=== PATIENT | female | born 1965 | race Caucasian/White ===

== ENCOUNTER → 2017-02-04 | Outpatient (CLI) | payer BC ==
[~2017-02-04] MED LIST: AMOX500C2 PO; BPR75T PO; CHOL500026 PO; CITA20TA4 PO; CYCL10TA9 PO; DCS100C PO; DULO60CA6 PO; EST.1TD TD; ESTR1TAB24 PO; FURO40TA4 PO; GABA600T PO; GBPN600T PO; HYDR-3583 PO; HYDR-3720 PO; IBP800T PO; MGX400T PO; NAPR-243 PO; OMEG-90 PO; ONDAN4ODT PO; OXYC15TA74 PO; POTA10TA6 PO; PRX20T PO; SIMV20TA3 PO
--- NOTE | 2017-02-05 08:31 | Diagnostic Imaging Report ---
Bilateral screening mammogram 2D views with tomosynthesis The current study was also evaluated with a Computer Aided Detection (CAD) system. Indication: Screening. No current complaints stated on the questionnaire. COMPARISON: 01/14/17. FINDINGS: The breasts are composed of scattered fibroglandular densities. There are occasional benign-appearing calcifications. Allowing for technique and positional differences, no suspicious change is seen. IMPRESSION: No significant change. ACR BI-RADS Category 2: Benign findings. Result letter will be mailed to the patient. Note: At least 10% of breast cancer is not imaged by mammography. Dictated by: Dictated on workstation # [id number]
== END ==
LOC: RAD 13:33
PROVIDERS: ATTEND Nurse Practitioner
DX: Z12.31 Encounter for screening mammogram for malignant neoplasm of breast (principal)
CPT/HCPCS: 77067

== ENCOUNTER 2017-02-11 14:00 | Outpatient (CLI) | payer BC ==
[~2017-02-11] VITALS: Ht 160 cm; Wt 83.9 kg
[2017-02-11] MEDS ORDERED: FENO134C PO (14:02)
[2017-02-11] MEDS ORDERED: SIMV40TA4 PO (14:02)
== END 2017-02-11 14:08 ==
LOC: PREOP 14:00
PROVIDERS: ATTEND Surgery
DX: Z01.818 Encounter for other preprocedural examination (principal); R19.7 Diarrhea, unspecified; Z87.19 Personal history of other diseases of the digestive system

== ENCOUNTER 2017-02-15 08:27 | Day surgery (SDC) | payer BC ==
[~2017-02-15 08:27] MED LIST changes: +FENO134C PO; +SIMV40TA4 PO
[2017-02-15 08:35] VITALS: BP 128/81
[2017-02-15] MEDS ORDERED: fentaNYL INJECTION 100 MCG/2 ML AMP IVP PRN (08:45)
[2017-02-15] MEDS: NS IV 500 ML 500 ML IV PRN ×3 (08:50→10:41)
[2017-02-15] MEDS ORDERED: MIDAZOLAM 2 MG/2 ML (VERSED) VIAL ONE ×3 (09:23)
[2017-02-15] MEDS ORDERED: fentaNYL INJECTION 100 MCG/2 ML AMP ONE (09:24)
[2017-02-15] MEDS ORDERED: NS IV 500 ML 500 ML ONE (09:57)
--- NOTE | 2017-02-15 10:24 | Conscious Sedation/ASA ---
Conscious Sedation Pre-Proced Time Reviewed: 10:24 ASA Class: 2 Airway Mallampati Classification: (modoc appropriate class) I. II. III, IV Lungs Heart ASA score ASA 1: a normal healthy patient ASA 2: a patient with a mild systemic disease (mid diabetes, controlled hypertension, obesity ASA 3: a patient with a severe systemic disease that limits activity (angina , COPD, prior Myocardial infarction) ASA 4: a patient with an incapacitating disease that is a constant threat to life (CHF, renal failure) ASA 5: a moribund patient not expected to survive 24 hrs. (ruptured aneurysm) ASA 6: a declared brain patient whose organs are being harvested. For emergent operations, add the letter E after the classification Grade 1 Sedation Plan: Discussed options with patient/fam Note The patient is an appropriate candidate to undergo the planned procedure, sedation, and anesthesia. The patient immediately re-assessed prior to indication. ALESIA BAUER MD Feb 15, 2017 10:24 am
--- NOTE | 2017-02-15 10:24 | History & Physicial ---
History of Present Illness History of Present Illness Reason for visit/HPI To undergo colonoscopy regarding diverticulitis and for screening purposes Date of Admission Date Seen by Provider: Feb 15, 2017 Time Seen by Provider: 10:23 I consulted on this patient on 02/15/17 10:22 Attending Physician Alesia Hayes MD Admitting Physician Ilia Cortez MD Consult Allergies and Home Medications Allergies Coded Allergies: No Known Drug Allergies (Unverified , 02/11/17) Home Medications Estradiol 1 Mg Tablet, 1 MG PO DAILY, (Reported) Fenofibrate,Micronized 134 Mg Capsule, 134 MG PO DAILY, (Reported) Simvastatin 40 Mg Tablet, 40 MG PO DAILY, (Reported) Past Whhyuiq-Mztqfa-Aamiat Hx Patient Social History Alcohol Use: Occasionally Uses Recreational Drug Use: No Smoking Status: Never a Smoker Recent Foreign Travel: No Contact w/other who traveled: No Recent Hopitalizations: No Recent Infectious Disease Expo: No Immunizations Up To Date Date of Influenza Vaccine: Apr 20, 2016 Seasonal Allergies Seasonal Allergies: No Surgeries HX Surgeries: Yes (LEFT ARM SURGERY, D&C, RIGHT HIP BURSA REMOVED,) Surgeries: Gallbladder, Hysterectomy Respiratory Hx Respiratory Disorders: No Cardiovascular Hx Cardiovascular Disorders: No Cardiac Disorders: Irregular Heartbeat Neurological Hx Neurological Disorders: Yes Neurological Disorders: Headaches /Migraines Reproductive System Hx Reproductive Disorders: No Sexually Transmitted Disease: No HIV/AIDS: No Genitourinary Hx Genitourinary Disorders: No Gastrointestinal Hx Gastrointestinal Disorders: Yes Gastrointestinal Disorders: Diverticulosis, Chronic Diarrhea Musculoskeletal Hx Musculoskeletal Disorders: Yes (HX COMPOUND FRACTURE LEFT ARM) Musculoskeletal Disorders: Arthritis, Fibromyalgia, Chronic Back Pain, Fractures Endocrine Hx Endocrine Disorders: No HEENT HX ENT Disorders: Yes (GLASSES) Loss of Vision: Bilateral Hearing Impairment: Denies Cancer Hx Cancer: Yes (BASAL CELL) Cancer: Skin Psychosocial Hx Psychiatric Problems: Yes (HX ) Behavioral Health Disorders: Depression Integumentary HX Skin/Integumentary Disorder: No Blood Transfusions Hx Blood Disorders: No Adverse Reaction to a Blood Tr: No (N/A) Family Medical History Family Hx: FAM HX-BLOOD DISORD NEC G8 BROTHER FAM HX-NEUROLOG DIS NEC G8 SISTER Family history: Arthritis 19 MOTHER Family history: Cardiovascular disease 19 FATHER 19 MOTHER Family history: Hypertension 19 MOTHER Stroke 19 MOTHER Constitutional: no symptoms reported EENTM: no symptoms reported Cardiovascular: no symptoms reported Gastrointestinal: no symptoms reported Genitourinary: no symptoms reported Musculoskeletal: no symptoms reported Skin: no symptoms reported Psychiatric/Neurological: No Symptoms Reported Physical Exam Vital Signs Vital Sign - Last 12Hours 02/15/17 08:35 Temp 98.7 Pulse 89 Resp 18 B/P (MAP) 128/81 Pulse Ox 92 Capillary Refill : General Appearance: No Apparent Distress HEENT: Normal ENT Inspection Neck: Normal Inspection Respiratory: Lungs Clear Cardiovascular: Regular Rate, Rhythm Gastrointestinal: Non Tender, Soft Rectal: Deferred Neurologic/Psychiatric: Alert Skin: Warm/Dry Assessment/Plan Assessment and Plan resolved sigmoid diverticulitis. For screening and colonoscopy to gauge the extent of diverticulosis Problems: ALESIA HAYES MD Feb 15, 2017 10:24 am
[2017-02-15] MEDS: MIDAZOLAM 2 MG/2 ML (VERSED) VIAL IVP PRN ×3 (10:40→10:53)
--- NOTE | 2017-02-15 11:02 | Endo Procedure Record ---
Endo Procedure Report Date of Procedure Feb 15, 2017 Surgeon (s) ALESIA BAUER MD Post Procedure/Op Diagnosis sigmoid diverticulosis Procedure Performed colonoscopy to cecum Description of Procedure Anesthesia Type: Conscious Sedation Specimen(s) collected/removed none Description of the Procedure Indication for the procedure: This lady has been treated for sigmoid diverticulitis at least on 2 occasions, 5 years apart. She came in for colonoscopy to evaluate the extend of diverticulosis and for screening purposes. Informed consent was obtained after reviewing the procedure and complications of iatrogenic perforation, post polypectomy bleeding etc. Description of procedure: she was placed in left lateral decubitus position and her vital signs were monitored. Conscious sedation was achieved using Versed and fentanyl. Digital rectal examination was unremarkable. The colonoscope was then introduced in the rectum and advanced all the way up to the cecum. The quality of bowel preparation was rather suboptimal mL with liquid stools found along the sigmoid colon. The scope was then withdrawn slowly and the mucosa examined in a systematic fashion after suctioning the liquid fecal material. Finding: Narrow mouthed sigmoid diverticulitis without any active inflammation. No polyps were found. She tolerated the procedure well and was taken back to the nursing area in a stable condition. Impression: Resolved sigmoid diverticulosis. Will treat conservatively. No family history of colon cancer and therefore screening examination recommended in 10 years. Copies To: DUTCH DURON MD, XAVIER M MD Feb 15, 2017 11:02 am
--- NOTE | 2017-02-15 11:03 | Discharge Inst-Simple/Standard ---
Discharge Inst-Standard Discharge Medications New, Converted or Re-Newed RX: Other Patient Instructions/Follow Up Plan of Care/Instructions/FU: screening colonoscopy in 10 years Activity as Tolerated: Yes Discharge Diet: No Restrictions ALESIA BAUER MD Feb 15, 2017 11:03 am
[2017-02-15 11:10] VITALS: BP 119/76
[2017-02-15 11:40] VITALS: BP 116/72
[2017-02-15 11:50] VITALS: BP 116/72
== END 2017-02-15 11:50 | disposition home or self-care (01) ==
LOC: ENDO 08:27
PROVIDERS: ATTEND Surgery
DX: K57.30 Diverticulosis of large intestine without perforation or abscess without bleeding (principal)

== ENCOUNTER 2017-12-07 06:12 | Outpatient (CLI) | payer BC ==
[~2017-12-07] VITALS: Ht 160 cm; Wt 83.9 kg
[2017-12-07] MEDS ORDERED: ESTR1TAB24 PO (14:52)
[2017-12-07] MEDS ORDERED: POTA10TA10 PO (14:52)
[2017-12-07] MEDS ORDERED: FURO40TA4 PO (14:52)
[2017-12-13] MEDS ORDERED: PANT40TA2 PO (11:02)
== END 2017-12-07 14:54 ==
LOC: PREOP 06:12
PROVIDERS: ATTEND Surgery
DX: Z01.818 Encounter for other preprocedural examination (principal); K21.9 Gastro-esophageal reflux disease without esophagitis; R19.5 Other fecal abnormalities

== ENCOUNTER 2017-12-13 09:36 | Day surgery (SDC) | payer BC ==
[~2017-12-13] VITALS: Ht 160 cm; Wt 83.9 kg
[~2017-12-13 09:36] MED LIST changes: +POTA10TA10 PO
[2017-12-13] MEDS ORDERED: NS IV 500 ML 500 ML IV PRN (09:41)
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
[2017-12-13] MEDS ORDERED: HURRICAINE EXT TUBE (BENZOCAINE) XX PRN (09:45)
[2017-12-13 09:50] VITALS: BP 119/74
[2017-12-13] MEDS ORDERED: NS IV 500 ML 500 ML ONE (10:03)
--- NOTE | 2017-12-13 10:04 | Conscious Sedation/ASA ---
Conscious Sedation Pre-Proced Time Reviewed: 10:04 ASA Class: 2 Airway Mallampati Classification: (tuscarora appropriate class) I. II. III, IV Lungs Heart ASA score ASA 1: a normal healthy patient ASA 2: a patient with a mild systemic disease (mid diabetes, controlled hypertension, obesity ASA 3: a patient with a severe systemic disease that limits activity (angina , COPD, prior Myocardial infarction) ASA 4: a patient with an incapacitating disease that is a constant threat to life (CHF, renal failure) ASA 5: a moribund patient not expected to survive 24 hrs. (ruptured aneurysm) ASA 6: a declared brain patient whose organs are being harvested. For emergent operations, add the letter E after the classification Grade 1 Sedation Plan: Plan communicated to team members, Discussed options with patient/fam Note The patient is an appropriate candidate to undergo the planned procedure, sedation, and anesthesia. The patient immediately re-assessed prior to indication. ALESIA BAUER MD Dec 13, 2017 10:04
--- NOTE | 2017-12-13 10:04 | History & Physicial ---
History of Present Illness History of Present Illness Reason for visit/HPI for EGD to investigate symptoms of reflux disease and heme-positive stools Date of Admission 12/13/17 Date Seen by Provider: Dec 13, 2017 Time Seen by Provider: 10:03 I consulted on this patient on 12/13/17 10:02 Attending Physician Alesia Hayes MD Admitting Physician Ilia Cortez MD Consult Allergies and Home Medications Allergies Coded Allergies: No Known Drug Allergies (Unverified , 02/11/17) Home Medications Estradiol 1 Mg Tablet, 1 MG PO DAILY, (Reported) Fenofibrate,Micronized 134 Mg Capsule, 134 MG PO DAILY, (Reported) Furosemide 40 Mg Tablet, 40 MG PO DAILY, (Reported) Potassium Chloride 10 Meq Tablet.er, 10 MEQ PO DAILY, (Reported) Simvastatin 40 Mg Tablet, 40 MG PO DAILY, (Reported) Patient Home Medication List Home Medication List Reviewed: Yes Past Ybalggn-Gjcjpg-Bmxnnq Hx Patient Social History Marrital Status: Employed/Student: employed Alcohol Use: Occasionally Uses Alcohol Beverage of Choice: Beer Recreational Drug Use: No Smoking Status: Never a Smoker Recent Foreign Travel: No Contact w/other who traveled: No Recent Hopitalizations: No Recent Infectious Disease Expo: No Immunizations Up To Date Date of Influenza Vaccine: Apr 11, 2017 Seasonal Allergies Seasonal Allergies: No Surgeries Yes Gallbladder, Hysterectomy Respiratory No Cardiovascular No Irregular Heartbeat Neurological Yes Headaches /Migraines Reproductive System Hx Reproductive Disorders: No Sexually Transmitted Disease: No HIV/AIDS: No BINDING NICKER History: Hysterectomy Gastrointestinal Gastroesophageal Reflux, Diverticulosis Musculoskeletal Arthritis, Fibromyalgia, Chronic Back Pain, Fractures HEENT Loss of Vision: Bilateral Hearing Impairment: Denies Cancer Skin Psychosocial Behavioral Health Disorders: Depression Blood Transfusions Adverse Reaction to a Blood Tr: No (N/A) Family Medical History Family Hx: FAM HX-BLOOD DISORD NEC G8 BROTHER FAM HX-NEUROLOG DIS NEC G8 SISTER Family history: Arthritis 19 MOTHER Family history: Cardiovascular disease 19 FATHER 19 MOTHER Family history: Hypertension 19 MOTHER Stroke 19 MOTHER Constitutional: no symptoms reported EENTM: no symptoms reported Respiratory: no symptoms reported Cardiovascular: no symptoms reported Gastrointestinal: see HPI Genitourinary: no symptoms reported Musculoskeletal: no symptoms reported Skin: no symptoms reported Psychiatric/Neurological: No Symptoms Reported Physical Exam Vital Signs Capillary Refill : General Appearance: No Apparent Distress Neck: Normal Inspection Respiratory: Lungs Clear Cardiovascular: Regular Rate, Rhythm Gastrointestinal: Non Tender, Soft Neurologic/Psychiatric: Alert, Oriented x3 Skin: Warm/Dry Assessment/Plan Assessment and Plan lady with symptoms of reflux and heme-positive stools. For upper endoscopy. Admission Diagnosis Admission Status: Other (Outpt Proc) ALESIA HAYES MD Dec 13, 2017 10:04
[2017-12-13] MEDS ORDERED: fentaNYL INJECTION 100 MCG/2 ML AMP ONE (10:26)
[2017-12-13] MEDS ORDERED: HURRICAINE EXT TUBE (BENZOCAINE) ONE (10:27)
[2017-12-13] MEDS ORDERED: MIDAZOLAM 2 MG/2 ML (VERSED) VIAL ONE ×4 (10:27→10:44)
[2017-12-13] MEDS: MIDAZOLAM 2 MG/2 ML (VERSED) VIAL IVP PRN ×4 (10:40→10:49)
[2017-12-13] MEDS: fentaNYL INJECTION 100 MCG/2 ML AMP IVP PRN ×2 (10:41→10:44)
--- NOTE | 2017-12-13 11:01 | Endo Procedure Record ---
Endo Procedure Report Date of Procedure Last Colonoscopy: Yes (2016) Dec 13, 2017 Surgeon (s) ALESIA BAUER MD Post Procedure/Op Diagnosis hiatal hernia with grade 2 esophagitis 2 mm distal gastric ulcer and multiple antral erosions Duodenitis Procedure Performed EGD with antral biopsy for H. pylori Description of Procedure Anesthesia Type: Conscious Sedation Specimen(s) collected/removed antral mucosa for H. pylori Description of the Procedure Indication for the procedure: This lady came in for an endoscopic assessment of symptoms of reflux disease. Informed consent was obtained after reviewing the procedure in detail. Description of the procedure: She was placed in left lateral decubitus position and her vital signs were monitored. Conscious sedation was achieved using Versed and fentanyl. The flexible gastroscope was introduced down the esophagus , past the stomach, into the proximal duodenum. Findings: Esophagus: Hiatal hernia with grade 2 esophagitis Stomach: 2 mm distal gastric ulcer and multiple antral erosions. Biopsy for H. pylori was obtained. Duodenum: Changes of mild duodenitis were found. There was no ofelia ulceration. She tolerated the procedure well and was taken in the nursing area in a stable condition. Impression: Symptoms of reflux disease. Gastric ulcers and erosions. H. pylori status pending Copy Copies To 1: JEROME MCLAIN XAVIER M MD Dec 13, 2017 11:01
[2017-12-13] MEDS ORDERED: PANT40TA2 PO (11:02)
--- NOTE | 2017-12-13 11:04 | Discharge Inst-Simple/Standard ---
Discharge Inst-Standard Discharge Medications New, Converted or Re-Newed RX: RX on Chart Patient Instructions/Follow Up Plan of Care/Instructions/FU: follow-up with her primary Activity as Tolerated: Yes Discharge Diet: No Restrictions ALESIA BAUER MD Dec 13, 2017 11:04
[2017-12-13 11:20] VITALS: BP 113/67
[2017-12-13 11:45] VITALS: BP 120/67
[2017-12-13 11:55] VITALS: BP 120/67
== END 2017-12-13 11:55 | disposition home or self-care (01) ==
LOC: ENDO 09:36
PROVIDERS: ATTEND Surgery
DX: K21.0 Gastro-esophageal reflux disease with esophagitis (principal); K25.7 Chronic gastric ulcer without hemorrhage or perforation; K29.80 Duodenitis without bleeding; I49.9 Cardiac arrhythmia, unspecified; G43.909 Migraine, unspecified, not intractable, without status migrainosus; M79.7 Fibromyalgia; K57.30 Diverticulosis of large intestine without perforation or abscess without bleeding; F32.9 Major depressive disorder, single episode, unspecified; Z79.899 Other long term (current) drug therapy
CPT/HCPCS: 88305

== ENCOUNTER → 2018-01-27 | Outpatient (CLI) | payer BC ==
[~2018-01-27] MED LIST changes: +PANT40TA2 PO
--- NOTE | 2018-01-27 17:28 | Diagnostic Imaging Report ---
INDICATION: Back pain. Three views were obtained. FINDINGS: There is slight anterolisthesis of L4 on L5. Alignment is otherwise normal. Vertebral body heights are well maintained. There is no fracture. IMPRESSION: Slight degenerative anterolisthesis of L4 on L5m, otherwise unremarkable. Dictated by: Dictated on workstation # [id number]
--- NOTE | 2018-01-27 17:32 | Diagnostic Imaging Report ---
CLINICAL INDICATION: Patient with midback pain. No known injury. EXAM: X-ray of the thoracic spine, three views. COMPARISON: X-ray of the thoracic spine dated 12/12/2012. FINDINGS: There is no acute thoracic spine fracture or dislocation. There is mild dextroscoliosis of the midthoracic spine region which is minimally progressed. There are mildly hypertrophic spurs involving the thoracic spine which have minimally progressed. Surgical clips are seen overlying the right upper quadrant which could be related to cholecystectomy changes. Again noted partially visualized lower cervical anterior disc fusion hardware. IMPRESSION: 1: There is no acute fracture or dislocation. 2: Mild degenerative disease of the thoracic spine which has minimally progressed. Dictated by: Dictated on workstation # [id number]
== END ==
LOC: RAD 16:53
DX: M47.814 Spondylosis without myelopathy or radiculopathy, thoracic region (principal)
CPT/HCPCS: 72070; 72100

== ENCOUNTER → 2018-01-29 | Outpatient (CLI) | payer BC ==
--- NOTE | 2018-01-29 11:23 | Diagnostic Imaging Report ---
PROCEDURE: MRI lumbar spine. TECHNIQUE: Multiplanar, multisequence MRI of the lumbar spine was performed without contrast. INDICATION: Back pain. Comparison made with prior examination from 10/30/2015. FINDINGS: The alignment of the lumbar spine is normal. Vertebral body heights are well maintained. There is no spondylolysis or spondylolisthesis. No fractures are identified. Conus medullaris is seen at L1 and is normal in appearance. The T12-L1 disc is unremarkable. L1-L2 disc is unremarkable. L2-L3 disc is unremarkable. L3-L4 disc is unremarkable. At L4-L5, there is slight loss of disc height and signal intensity. There is broad-based annular bulging, facet disease, and thickening of the ligamentum flavum. There is encroachment upon the left lateral recess. There is mild bilateral neuroforaminal encroachment. At L5-S1, there is mild broad-based annular bulging with slight effacement of the ventral thecal sac. There are postsurgical changes of a right hemilaminectomy. The previously seen extruded disc fragment is no longer appreciated. The abdominal aorta is nonaneurysmal. There is a cyst in the right kidney. IMPRESSION: Broad-based annular bulging at L4-L5 with mild central spinal stenosis and encroachment upon the left lateral recess. There is also mild bilateral neuroforaminal encroachment. Postsurgical changes of right hemilaminectomy at L5-S1 with removal of the previously seen herniated disc fragment. Otherwise some mild lower lumbar hypertrophic degenerative facet disease without other focal disc extrusion or high-grade spinal stenosis. Dictated by: Dictated on workstation # [id number]
== END ==
LOC: RAD 08:16
DX: M48.062 Spinal stenosis, lumbar region with neurogenic claudication (principal); M51.26 Other intervertebral disc displacement, lumbar region; Z98.890 Other specified postprocedural states
CPT/HCPCS: 72148

== ENCOUNTER 2018-10-24 05:41 | Outpatient (CLI) | payer BC ==
[~2018-10-24] VITALS: Ht 160 cm; Wt 74.8 kg
== END 2018-10-24 10:46 | disposition home or self-care (01) ==
LOC: PREOP 05:41
PROVIDERS: ATTEND Obstetrics & Gynecology
DX: Z01.818 Encounter for other preprocedural examination (principal)

== ENCOUNTER 2018-10-25 11:06 | Day surgery (SDC) | payer BC ==
[~2018-10-25] VITALS: Ht 160 cm; Wt 74.8 kg
[2018-10-25] MEDS ORDERED: ceFAZolin INJECTION 1,000 MG in WATER (STERILE) FOR INJECTION 10 ML IV ONE (11:15)
[2018-10-25] MEDS ORDERED: metroNIDAZOLE 500 MG/100 ML IVPB (PRE-MIX) IV ONE (11:30)
[2018-10-25 11:40] LABS: BILIRUBIN,URINE NEGATIVE (NEGATIVE); CLARITY,URINE SLIGHTLY CLOUDY; COLOR,URINE YELLOW; GLUCOSE, URINE (UA) NEGATIVE (NEGATIVE); KETONES,URINE NEGATIVE (NEGATIVE); LEUKOCYTE ESTERASE ,URINE NEGATIVE (NEGATIVE); NITRITE,URINE NEGATIVE (NEGATIVE); PH,URINE 5 (5-9); PROTEIN,URINE NEGATIVE (NEGATIVE); UROBILINOGEN,URINE NORMAL (NORMAL)
[2018-10-25] MEDS: LACTATED RINGERS 1,000 ML IV PRN ×2 (11:45→13:55)
[2018-10-25 12:00] LABS: BASOPHILS % (AUTO) 1 % (0-10); EOSINOPHILS # (AUTO) 0.1 10^3/uL (0.0-0.3); EOSINOPHILS % (AUTO) 2 % (0-10); HEMATOCRIT 41 % (35-52); HEMOGLOBIN 13.1 G/DL (11.5-16.0); LYMPHOCYTES # (AUTO) 1.8 X 10^3 (1.0-4.0); LYMPHOCYTES % (AUTO) 38 % (12-44); MEAN CORPUSCULAR HEMOGLOBIN 30 PG (25-34); MEAN CORPUSCULAR HGB CONC 32 G/DL (32-36); MEAN CORPUSCULAR VOLUME 93 FL (80-99); MEAN PLATELET VOLUME 10.2 FL (7.4-10.4); MONOCYTES # (AUTO) 0.3 X 10^3 (0.0-1.0); MONOCYTES % (AUTO) 7 % (0-12); NEUTROPHILS # (AUTO) 2.5 X 10^3 (1.8-7.8); NEUTROPHILS % (AUTO) 53 % (42-75); PLATELET COUNT 197 10^3/uL (130-400); RED CELL DISTRIBUTION WIDTH 13.7 % (10.0-14.5); WHITE BLOOD COUNT 4.7 10^3/uL (4.3-11.0)
[2018-10-25 12:16] LABS: BACTERIA,URINE MODERATE /HPF; RBC,URINE 0-2 /HPF
[2018-10-25] MEDS ORDERED: ONDANSETRON 4 MG/2 ML (SDV) Z0FRAN ONE (12:45)
[2018-10-25] MEDS ORDERED: MIDAZOLAM 2 MG/2 ML (VERSED) VIAL ONE (12:45)
[2018-10-25] MEDS ORDERED: proPOfol 200 MG/20 ML (DIPRIVAN) VIAL IV ONE ×4 (12:45→13:47)
[2018-10-25] MEDS ORDERED: LIDOCAINE PF 2% 5 ML (XYLOCAINE) VIAL ONE (12:45)
[2018-10-25] MEDS ORDERED: fentaNYL INJECTION 100 MCG/2 ML AMP ONE (12:45)
[2018-10-25] MEDS ORDERED: ROCURONIUM 10 MG/ML 5 ML SYRINGE IV ONE (12:46)
[2018-10-25] MEDS ORDERED: SEVOFLURANE (ULTANE) 15 ML INHAL SOLN ONE ×2 (12:46→14:13)
[2018-10-25] MEDS ORDERED: ESTRADIOL VAGINAL CREAM 42.5 GM (ESTRACE) VG ONE (12:48)
[2018-10-25] MEDS ORDERED: NS (IVPB) 100 ML ONE (12:48)
[2018-10-25] MEDS ORDERED: VASOPRESSIN INJECTION 20 UNIT/ML VIAL ONE (12:48)
[2018-10-25 13:00] VITALS: BP 121/72
[2018-10-25] MEDS ORDERED: SCOPOLAMINE 1.5 MG (TRANSDERM-SCOP) PATCH TOP ONE (13:00)
[2018-10-25] MEDS ORDERED: FAMOTIDINE 20MG/2ML IV (PEPCID) IV ONE (13:00)
[2018-10-25] MEDS ORDERED: ONDANSETRON 4 MG/2 ML (SDV) Z0FRAN IV ONE (13:00)
[2018-10-25] MEDS ORDERED: DEXAMETHASONE 10 MG/ML (DECADRON) 1 ML VIAL ONE (13:22)
[2018-10-25] MEDS ORDERED: ONDANSETRON 4 MG/2 ML (SDV) Z0FRAN IVP PRN (14:30)
[2018-10-25] MEDS ORDERED: PROMETHAZINE INJ 25 MG/ML (PHENERGAN) AMP IVP ONE (14:30)
[2018-10-25] MEDS ORDERED: morphine INJ 10 MG/ML 1ML (SYR OR VIAL) IVP ONE (14:30)
[2018-10-25] MEDS ORDERED: morphine INJ 10 MG/ML 1ML (SYR OR VIAL) ONE (14:33)
[2018-10-25] MEDS ORDERED: morphine INJ 5 MG/ML 1 ML VIAL IV PRN (14:45)
[2018-10-25] MEDS ORDERED: KETOROLAC 30 MG/ML VIAL IV SCH (14:45)
[2018-10-25] MEDS ORDERED: MILK OF MAGNESIA 400 MG/5 ML 30 ML UDC PO PRN (14:45)
--- NOTE | 2018-10-25 14:45 | Operative Report ---
Operative Report Date of Procedure/Surgery Oct 25, 2018 Surgeon (s) PENNIE FOSTER DO Automobile Damage Appraiser (s): Ignacia Nick, MS III Post-Operative Diagnosis Cystocele, rectocele, stress incontinence Procedure Performed A &P repair, Solyx sling Description of Procedure Anesthesia Type: General Estimated blood loss (mL): 100 ml Specimen(s) collected/removed none Description of the Procedure With informed consent the patient was taken to the operating room where general anesthesia was found to be adequate. She was prepped and draped in the usual sterile fashion in the dorsolithotomy position. A Greenfield catheter was placed in the bladder. A very large rectocele was seen. The Lone star retractor was placed and stitched into place. The perineum was grasped on either side of the perineum with José Miguel Clamps. The posterior vaginal mucosa was injected with dilute vasopressin and a midline incision was made in the posterior vaginal wall. I then undermined the posterior vaginal epithelium with Shaver scissors and cut in the vaginal epithelium in the midline. I then dissected the vaginal epithelium off of the posterior pubovaginal fascia. It was quite scarred at the peritoneum from previous lacerations or episiotomies. Once the epithelium was dissected off of the posterior pubovaginal fascia I closed the defect with interrupted mattress style sutures of 2-0 Vicryl reducing the very large rectocele. I did this in two layers. I then trimmed the excess vaginal tissue and closed the vaginal defect with 2-0 Vicryl in a running fashion. I then excised a pyramidal portion of the scarred perineum and closed this in standard fashion with 2-0 Vicryl. Attention was now turned to the anterior side. There was a small cystocele. The anterior vaginal epithelium was grasped in the midline with an Allis clamp. The anterior vaginal epithelium was injected with dilute vasopressin. A midline incision was made with a scalpel and the vaginal epithelium was dissected off the pubovesical fascia to the white line and then the cystocele was reduce with interrupted mattress style sutures of 2-0 Vicryl. I then dissected the periurethral space laterally and placed the sling in standard fashion bilateral ly ensuring the the mesh laid flat under the urethra in the mid urethra. I did a cystoscopy revealing no intravesicular abnormalities and no defect in the bladder. I then removed the scope and left 400 ml of fluid in the bladder. With a Cred maneuver, there is no leakage. The applicator was now removed. Any excess tissue was trimmed and the vaginal epithelium was trimmed of any excess. I then repaired the defect with 2-0 Vicryl in running fashion. The Greenfield was replaced in the bladder. Findings of the Procedure large rectocele (3-4+), smaller cystocele and > 45 degree rotation of the urethra, with stress incontinence Allergies and Home Medications Allergies Coded Allergies: Sulfa (Sulfonamide Antibiotics) (Verified Allergy, Mild, N/V, RASH, 10/24/18) Home Medications Acetaminophen 500 Mg Tablet, 1,000 MG PO Q8H Prescribed by: PENNIE FOSTER on 10/26/18828 Docusate Sodium 100 Mg Capsule, 100 MG PO BID Prescribed by: PENNIE FOSTER on 10/26/18828 Ibuprofen 600 Mg Tablet, 600 MG PO Q6H Prescribed by: PENNIE FOSTER on 10/26/18828 Oxycodone Hcl 5 Mg Tab, 5 MG PO Q4H PRN for PAIN-SEVERE Prescribed by: PENNIE FOSTER on 10/26/18828 Patient Home Medication List Home Medication List Reviewed: Yes PENNIE FOSTER DO Oct 25, 2018 14:45
--- NOTE | 2018-10-25 15:15 | NUR ---
ADAIR SR admitted to room , with an admitting diagnosis of postop A/P repair with sling, on 10-25-18 from via cart, accompanied by PAR staff.ADAIR SR introduced to surroundings, call light, bed controls, phone, TV, temperature control, lights, meal times, smoking policy, visitor policy, side rail policy, bathrooms and showers. Patient Rights given to patient in the handbook. ADAIR SR verbalizes understanding that [facility] is not responsible for the loss or damage to any personal effects or valuables that are kept in the patients posession during their hospitalization. The following Patient Care Plans were discussed with the patient: Discharge Planning, pain management, and postop care plan. ADAIR SR verbalizes understanding of Interdisciplinary Patient Education. Patient and/or family were informed about the Rapid Response Team and its purpose.
[2018-10-25 15:45] VITALS: BP 116/73
[2018-10-25] MEDS ORDERED: KETOROLAC 30 MG/ML VIAL ONE (16:06)
[2018-10-25] MEDS: KETOROLAC 30 MG/ML VIAL IV SCH ×2 (16:10→21:33)
[2018-10-25] MEDS ORDERED: morphine INJ 4 MG/ML 1 ML (VIAL/SYRINGE) IV PRN (17:30)
[2018-10-25] MEDS ORDERED: CATHETER FLUSH 10 ML SYR IV PRN (17:30)
[2018-10-25] MEDS: ACETAMINOPHEN 500 MG TAB (TYLENOL) PO SCH (19:09)
[2018-10-25] MEDS ORDERED: diphenhydrAMINE 25 MG TAB (BENADRYL) PO ONE (19:28)
[2018-10-25] MEDS: LACTATED RINGERS 1,000 ML IV SCH (20:00)
[2018-10-25] MEDS ORDERED: diphenhydrAMINE 25 MG TAB (BENADRYL) PO PRN (20:00)
[2018-10-25 20:23] VITALS: BP 116/71
[2018-10-25] MEDS ORDERED: DOCUSATE SODIUM 100 MG (COLACE) CAP PO SCH (21:00)
[2018-10-26] VITALS: BP 88/45
[2018-10-26] MEDS: ACETAMINOPHEN 500 MG TAB (TYLENOL) PO SCH (03:00)
[2018-10-26] MEDS: LACTATED RINGERS 1,000 ML IV SCH ×2 (03:48→06:47)
[2018-10-26 04:18] VITALS: BP 101/60
[2018-10-26] MEDS: KETOROLAC 30 MG/ML VIAL IV SCH (04:18)
--- NOTE | 2018-10-26 06:47 | NUR ---
Vag packing removed, berger removed with no incident. Shanae care education given and pt sitting at bedside with no complaints at this time.
--- NOTE | 2018-10-26 08:15 | Anesthesia-General Post-Op ---
General Patient Condition Mental Status/LOC: Same as Preop Cardiovascular: Satisfactory Nausea/Vomiting: Absent Respiratory: Satisfactory Pain: Controlled Complications: Absent Post Op Complications Complications None Follow Up Care/Instructions Patient Instructions None needed. Anesthesia/Patient Condition Patient Condition Patient is doing well, no complaints, stable vital signs, no apparent adverse anesthesia problems. No complications reported per nursing. [place] [facility] [place] Yes СВЕТЛАНА FANG CRNA Oct 26, 2018 08:15
[2018-10-26] MEDS ORDERED: DOCU100C37 PO (08:29)
[2018-10-26] MEDS ORDERED: ACET-77 PO (08:29)
[2018-10-26] MEDS ORDERED: OXC5T PO (08:29)
[2018-10-26] MEDS ORDERED: IBUP-844 PO (08:29)
--- NOTE | 2018-10-26 08:30 | Discharge Inst-Women's Service ---
Discharge Inst-Women's Serv Depart Medication/Instructions New, Converted or Re-Newed RX: Other Final Diagnosis rectocele, symptomatic stress incontinence Consults/Follow Up Additional Follow Up: Yes (1 week (hold estradiol cream until instructed)) Activity Activity: Activity as Tolerated Driving Instructions: No Driving for 1 Week Nothing Inside Vagina: No Douching, No [place] (6-8 weeks), No Tampons Diet Discharge Diet: No Restrictions Symptoms to Report to : Bleeding Excessive, Pain Increased, Fever Over 101 Degrees F, Urination Difficulty, Vaginal Bleeding Increase, Cramps in Feet or Legs, Lightheadedness, Vaginal Discharge Foul For Any Problems or Questions: Contact Your Physician Skin/Wound Care Bathing Instructions: PENNIE Magaña DO Oct 26, 2018 08:30
--- NOTE | 2018-10-26 09:15 | NUR ---
Dr Gutierrez here to see pt. D/C orders rec'd.
--- NOTE | 2018-10-26 10:02 | NUR ---
Follow up appt made with Dr. Gutierrez's office at this time
--- NOTE | 2018-10-26 10:35 | NUR ---
Discharge instructions explained to pt with copy provided to pt along with oxycodone prescription. Pt notified of follow up appt and scripts transmitted to [facility] pharmacy. Pt verbalizes understanding of teaching, signs to verify. Denies questions or concerns at this time. 1045 Pt ambulates off unit accompanied by S.O. and RN to private vehicle with all personal belongings. No s/s of distress noted.
[2018-10-26] MEDS ORDERED: IBUPROFEN 600 MG (MOTRIN) TAB PO SCH (17:00)
== END 2018-10-26 10:45 | disposition home or self-care (01) ==
LOC: SDC 11:06 → WS 15:15 → SDC 10-26 10:45
PROVIDERS: ATTEND Obstetrics & Gynecology
DX: N81.11 Cystocele, midline (principal); N81.6 Rectocele; N39.3 Stress incontinence (female) (male); K21.9 Gastro-esophageal reflux disease without esophagitis; F32.9 Major depressive disorder, single episode, unspecified; Z79.899 Other long term (current) drug therapy
CPT/HCPCS: 36415; 81000; 85025; 86850; 86900; 86901; 87081; 87088; 94664

== ENCOUNTER → 2019-03-14 | Outpatient (CLI) | payer BC, OTHER ==
[~2019-03-14] MED LIST changes: +ACET-77 PO; +DOCU100C37 PO; +IBUP-844 PO; +OXC5T PO
--- NOTE | 2019-03-14 17:12 | Diagnostic Imaging Report ---
INDICATION: Routine screening. COMPARISON is made with prior mammograms from 03/09/2018 and 02/04/2017. TECHNIQUE: 2-D and 3-D bilateral screening mammography was performed with CAD. FINDINGS: Scattered fibroglandular densities are identified bilaterally. Benign-appearing nodular density in the medial left breast is similar to perhaps slightly smaller when compared with prior exam. No new mass or malignant appearing microcalcifications are seen. There are benign calcifications bilaterally. The axillae are unremarkable. IMPRESSION: BI-RADS category 2. No mammographic features suspicious for malignancy are identified. ACR BI-RADS Category 2: Benign findings. Result letter will be mailed to the patient. Note: At least 10% of breast cancer is not imaged by mammography. Dictated by: Dictated on workstation # [id number]
== END ==
LOC: RAD 15:31
PROVIDERS: ATTEND Obstetrics & Gynecology
DX: Z12.31 Encounter for screening mammogram for malignant neoplasm of breast (principal)
CPT/HCPCS: 77067

== ENCOUNTER → 2019-05-01 | Outpatient (CLI) | payer BC, OTHER ==
--- NOTE | 2019-05-01 18:08 | Diagnostic Imaging Report ---
INDICATION: History of kidney stones. Hematuria. FINDINGS: KUB. Renal outlines are smooth. No evidence of calculi overlying the kidneys or along the ureteral paths. No calcifications are seen over the bladder. Bowel gas pattern appears normal. IMPRESSION: Negative KUB. Dictated by: Dictated on workstation # [id number]
== END ==
LOC: RAD 17:41
PROVIDERS: ATTEND Nurse Practitioner Family
DX: R31.21 Asymptomatic microscopic hematuria (principal); Z87.442 Personal history of urinary calculi
CPT/HCPCS: 74018

== ENCOUNTER → 2019-05-30 | Outpatient (CLI) | payer BC ==
--- NOTE | 2019-05-30 16:42 | Diagnostic Imaging Report ---
PROCEDURE: US Renal Bilateral. TECHNIQUE: Multiple real-time grayscale images were obtained over the kidneys in various projections bilaterally. INDICATION: Benign microscopic hematuria. FINDINGS: Right kidney measures 11.0 x 6.2 x 5.2 cm and the left kidney measures 9.5 x 5.8 x 5.7 cm. Cortical thickness and echogenicity is normal. Right kidney does contain multiple cysts, largest approximately 4.7 cm x 4.4 cm. There appears be a small cyst involving the left kidney approximately 1.6 cm in size. No calculi or hydronephrosis is detected. Bladder is unremarkable. Bilateral ureteral jets are visualized. IMPRESSION: Bilateral renal cysts. The study is otherwise unremarkable. Dictated by: Dictated on workstation # [id number]
== END ==
LOC: RAD 15:29
PROVIDERS: ATTEND Obstetrics & Gynecology
DX: N28.1 Cyst of kidney, acquired (principal)
CPT/HCPCS: 76770

== ENCOUNTER → 2020-12-10 | Outpatient (CLI) | payer BC ==
[~2020-12-10] MED LIST changes: -ACET-77 PO; +ACET-78 PO; +SIMV40TA25 PO; -SIMV40TA4 PO
--- NOTE | 2020-12-10 15:22 | Diagnostic Imaging Report ---
INDICATION: Routine screening. COMPARISON: 03/14/2019 and 03/09/2018. TECHNIQUE: 2D and 3D bilateral screening mammography was performed with CAD. FINDINGS: Scattered fibroglandular densities are identified bilaterally. The parenchymal pattern is stable. There are scattered benign calcifications. No dominant mass or malignant appearing microcalcifications are seen. The axillae are unremarkable. IMPRESSION: No mammographic features suspicious for malignancy are identified. ACR BI-RADS Category 2: Benign findings. Result letter will be mailed to the patient. Note: At least 10% of breast cancer is not imaged by mammography. Dictated by: Dictated on workstation # [id number]
== END ==
LOC: RAD 10:57
PROVIDERS: ATTEND Surgery
DX: Z12.31 Encounter for screening mammogram for malignant neoplasm of breast (principal)
CPT/HCPCS: 77063; 77067

== ENCOUNTER → 2022-01-20 | Outpatient (CLI) | payer BC ==
[~2022-01-20] MED LIST changes: -FENO134C PO; +FENO134C21 PO
--- NOTE | 2022-01-20 11:38 | Diagnostic Imaging Report ---
Indication: Routine screening. Comparison is made with prior mammogram from 12/10/2020 and 03/14/2019. 2-D and 3-D bilateral screening mammography was performed with CAD. CAD is utilized. The current study was also evaluated with a Computer Aided Detection (CAD) system. Both breasts are heterogeneously dense, limiting the sensitivity of mammography. The parenchymal pattern is stable. No mass or malignant-appearing microcalcifications are seen. There are benign calcifications bilaterally. Axillae are unremarkable. IMPRESSION: BI-RADS Category 2 No mammographic features suspicious for malignancy are identified. ACR BI-RADS Category 2: Benign findings. Result letter will be mailed to the patient. Note: At least 10% of breast cancer is not imaged by mammography. Dictated by: Dictated on workstation # [id number]
== END ==
LOC: RAD 09:59
PROVIDERS: ATTEND Nurse Practitioner Family
DX: Z12.31 Encounter for screening mammogram for malignant neoplasm of breast (principal)
CPT/HCPCS: 77063; 77067

== ENCOUNTER → 2022-06-22 | Outpatient (CLI) | payer BC ==
[~2022-06-22] MED LIST changes: +IOHEXOL 350 MG/ML 100 ML (OMNIPAQUE 350) VIAL IV ONE; +NS 100 ML (IVPB) BAG IV ONE
[2022-06-22 17:20] LABS: HEMATOCRIT 38 % (35-52); HEMOGLOBIN 12.5 g/dL (11.5-16.0); MEAN CORPUSCULAR HEMOGLOBIN 31 pg (25-34); MEAN CORPUSCULAR HGB CONC 33 g/dL (32-36); MEAN CORPUSCULAR VOLUME 95 fL (80-99); MEAN PLATELET VOLUME 9.3 fL (9.0-12.2); PLATELET COUNT 246 10^3/uL (130-400); WHITE BLOOD COUNT 5.4 10^3/uL (4.3-11.0)
[2022-06-22 17:30] LABS: POTASSIUM 3.6 MMOL/L (3.6-5.0)
[2022-06-22 17:31] LABS: CALCIUM 9.1 MG/DL (8.5-10.1)
[2022-06-22 17:32] LABS: TOTAL PROTEIN 7.1 GM/DL (6.4-8.2)
[2022-06-22 17:34] LABS: BILIRUBIN,TOTAL 0.2 MG/DL (0.1-1.0)
[2022-06-22 17:36] LABS: CREATININE SERUM 0.72 MG/DL (0.60-1.30)
--- NOTE | 2022-06-22 18:18 | Diagnostic Imaging Report ---
PROCEDURE: CT abdomen and pelvis with contrast. TECHNIQUE: Multiple contiguous axial images were obtained through the abdomen and pelvis after administration of intravenous contrast. Auto Exposure Controls were utilized during the CT exam to meet ALARA standards for radiation dose reduction. All CT scans use one or more of the following dose optimizing techniques: automated exposure control, MA and/or KvP adjustment based on patient size and exam type or iterative reconstruction. INDICATION: Abdominal pain, nausea, vomiting and fever. FINDINGS: The heart size is normal. The lung bases are clear. The liver is normal in size without focal lesions. Gallbladder is surgically absent. There is no biliary ductal dilatation. The spleen is normal. The pancreas and adrenal glands are unremarkable. There is a 6 cm cyst in the right kidney. The aorta is nonaneurysmal. The bowel gas pattern is nonspecific. There is some diverticular disease. Some mild left lower quadrant diverticulitis cannot be excluded although there is no abscess or free air. There is no pelvic mass, adenopathy or free fluid. Bladder is normal. There are degenerative changes in the spine. IMPRESSION: Diverticular disease of the distal colon with questionable mild left lower quadrant diverticulitis without evidence of abscess or free air. A 6 cm right renal cyst. Otherwise, unremarkable CT abdomen and pelvis. Dictated by: Dictated on workstation # [id number]
== END ==
LOC: RAD 17:02
PROVIDERS: ATTEND Nurse Practitioner Family
DX: K57.90 Diverticulosis of intestine, part unspecified, without perforation or abscess without bleeding (principal); N28.1 Cyst of kidney, acquired
CPT/HCPCS: 36415; 74177; 80053; 85027

== ENCOUNTER 2023-01-13 05:50 | Outpatient (CLI) | payer BC ==
[~2023-01-13] VITALS: Ht 160 cm; Wt 77.8 kg
[~2023-01-13 05:50] MED LIST changes: -IOHEXOL 350 MG/ML 100 ML (OMNIPAQUE 350) VIAL IV ONE; -NS 100 ML (IVPB) BAG IV ONE
[2023-01-13] MEDS ORDERED: ESTR1TAB24 PO (10:55)
== END 2023-01-13 11:02 | disposition home or self-care (01) ==
LOC: PREOP 05:50
PROVIDERS: ATTEND Surgery
DX: Z01.818 Encounter for other preprocedural examination (principal)

== ENCOUNTER 2023-01-27 12:58 | Day surgery (SDC) | payer BC ==
[~2023-01-27] VITALS: Ht 160 cm; Wt 77.8 kg
[2023-01-27] MEDS ORDERED: LACTATED RINGERS 1,000 ML IV STA (13:05)
[2023-01-27 13:15] VITALS: BP 134/74
[2023-01-27] MEDS ORDERED: LIDOCAINE JELLY 2% 6 ML SYRINGE MM PRN (13:15)
--- NOTE | 2023-01-27 13:42 | Progress Note-Pre Operative ---
Pre-Operative Progress Note Date of Available H&P: Jan 27, 2023 Date H&P Reviewed: Jan 27, 2023 Time H&P Reviewed: 13:30 History & Physical: No changes noted Pre-Operative Diagnosis: screening/FH colon ca PETER GALARZA MD Jan 27, 2023 13:42
--- NOTE | 2023-01-27 13:44 | Discharge Inst-Surgical ---
D/C Lap Instructions-GEOVANNI Follow Up Activity as tolerated High Fiber Diet 25g or more per day Avoid Alcohol, Caffeine, Spicy [place] and Acid foods. Drink 64 fluid oz or more of fluids per day. Symptoms to Report: Fever over 101 degree F, Nausea/Vomiting If any problems/questions: Contact your physician or go to Emergency Room PETER GALARZA MD Jan 27, 2023 13:44
[2023-01-27] MEDS ORDERED: ONDANSETRON 4 MG/2 ML (SDV) Z0FRAN IVP PRN (13:45)
[2023-01-27] MEDS ORDERED: ONDANSETRON 4 MG (ZOFRAN) ORAL DISSOLVE TAB PO PRN (13:45)
[2023-01-27] MEDS ORDERED: LIDOCAINE JELLY 2% 6 ML SYRINGE ONE (15:03)
[2023-01-27 15:40] VITALS: BP 108/62
[2023-01-27] MEDS ORDERED: proPOfol 200 MG/20 ML (DIPRIVAN) VIAL IV ONE (15:43)
[2023-01-27] MEDS ORDERED: PROPOFOL INJECTION 50 ML IV ONE (15:43)
[2023-01-27 15:45] VITALS: BP 108/62
--- NOTE | 2023-01-27 15:45 | Anesthesia-General Post-Op ---
MAC Patient Condition Mental Status/LOC: Same as Preop Cardiovascular: Satisfactory Nausea/Vomiting: Absent Respiratory: Satisfactory Pain: Controlled Complications: Absent Post Op Complications Complications None Follow Up Care/Instructions Patient Instructions None needed. Anesthesiology Discharge Order Discharge Order Patient is doing well, no complaints, stable vital signs, no apparent adverse anesthesia problems. No complications reported per nursing. ASHANTI BERTRAND DO Jan 27, 2023 15:45
--- NOTE | 2023-01-27 15:55 | Progress Note-Post Operative ---
Post-Operative Progess Note Surgeon (s)/Lead Pastor (s) Surgeon PETER GALARZA MD Lead Pastor: none Pre-Operative Diagnosis screening/FH colon ca Post-Operative Diagnosis mild chronic stage 2 ext and int hemorrhoids, moderate sigmoid diverticulosis. Procedure & Operative Findings Date of Procedure 01/27/23 Procedure Performed/Findings colonoscopy Anesthesia Type mac Estimated Blood Loss Estimated blood loss (mL): minimal Specimens/Packing Specimens Removed none PETER GALARZA MD Jan 27, 2023 15:55
[2023-01-27 16:04] VITALS: BP 108/62
--- NOTE | 2023-01-27 21:44 | OPERATIVE REPORT ---
DATE OF SERVICE: 01/27/2023 ATTENDING PRIMARY CARE PHYSICIAN: Dr. Dora Mujica. PREOPERATIVE DIAGNOSIS: Screening colonoscopy with family history of colon cancer. POSTOPERATIVE DIAGNOSES: Mild chronic stage II, external and internal hemorrhoids, mild sigmoid diverticulosis. PROCEDURE: Colonoscopy. SURGEON: Peter Galarza MD ANESTHESIA: Monitored anesthesia care. ESTIMATED BLOOD LOSS: Minimal. FINDINGS: Mild chronic stage II, external and internal hemorrhoids, mild sigmoid diverticulosis DISPOSITION: The patient tolerated the procedure well. INDICATIONS: The patient is a 57-year-old female referred over to us for screening colonoscopy. Her last one was approximately 6 years ago and she believes this to be normal. She does not report any major issues with diarrhea, nor constipation as well as no red blood per rectum, nor any dark tarry stools. She does have a first-degree family history of colon cancer with her brother having being diagnosed with the disease in his 60s. She did have an episode of diverticulitis a few months ago and was treated with outpatient antibiotics and had a favorable response. DESCRIPTION OF PROCEDURE: The patient was brought to the endoscopy suite and laid in the left lateral decubitus position. After adequate IV pain and sedative medications and monitored anesthesia care, a digital rectal examination was performed. Mild chronic stage II, external and internal hemorrhoids were identified, not actively edematous nor inflamed and no bleeding. Normal sphincter tone was felt and there were no palpable masses. The endoscope was then intubated into the anus, rectum gently insufflated. The endoscope was then advanced through the valves of [place] of the rectum with no polyps or any neoplasms identified. We then proceeded to the sigmoid colon where there was a moderate sigmoid diverticulosis. No mucosal inflammatory changes to indicate any active diverticulitis. The endoscope was then advanced through the remainder of the descending, transverse and ascending colon to the cecum, which were normal. There were no polyps or any neoplasms identified throughout the colon or rectum. The endoscope was then slowly withdrawn while taking a second look and suctioning of residual air with no additional findings. The patient tolerated the procedure well. We will recommend continued medical management, which would encompass addition of a fiber supplement, which should equal or exceed 25 grams daily as well as significant amounts of water to promote soft consistency stools on a daily basis and this should prevent any further development of diverticulosis as well as prevent complications including abscess formation, perforation as well as profuse bleeding. It is also protective against polyp formation as well as colon cancer. If she is asymptomatic due to her first-degree family history of colon cancer, we will recommend a followup colonoscopy in approximately 5 years. Job ID: [id number] DocumentID: [id number] Dictated Date: 01/27/2023 15:47:19 Route Cdl Driver Date: 01/27/2023 21:42:00 Dictated By: PETER GALARZA MD
== END 2023-01-27 16:24 | disposition home or self-care (01) ==
LOC: ENDO 12:58
PROVIDERS: ATTEND Surgery
DX: Z12.11 Encounter for screening for malignant neoplasm of colon (principal); K57.30 Diverticulosis of large intestine without perforation or abscess without bleeding; K64.1 Second degree hemorrhoids; K64.4 Residual hemorrhoidal skin tags; Z80.0 Family history of malignant neoplasm of digestive organs; Z87.19 Personal history of other diseases of the digestive system